=== PATIENT | male | born 1950 | race Caucasian/White ===

== ENCOUNTER 2019-05-11 09:52 | Outpatient (CLI) | payer OTHER | END 2019-05-11 10:03 | disposition home or self-care (01) | LOC: SONOGRAMA 09:52 | DX: K92.1 Melena (principal); R63.4 Abnormal weight loss; Z13.1 Encounter for screening for diabetes mellitus; Z12.11 Encounter for screening for malignant neoplasm of colon; Z12.5 Encounter for screening for malignant neoplasm of prostate; F10.188 Alcohol abuse with other alcohol-induced disorder; F17.298 Nicotine dependence, other tobacco product, with other nicotine-induced disorders ==

== ENCOUNTER 2020-07-09 10:25 | Outpatient (CLI) | payer OTHER | END 2020-07-09 10:37 | disposition home or self-care (01) | LOC: RAD 10:25 | PROVIDERS: ATTEND Specialist | DX: R05 Cough (principal) ==

== ENCOUNTER → 2022-12-09 | Outpatient (CLI) | payer OTHER | END | disposition home or self-care (01) | LOC: TOM 08:45 | PROVIDERS: ATTEND Specialist | DX: J44.9 Chronic obstructive pulmonary disease, unspecified (principal); F10.19 Alcohol abuse with unspecified alcohol-induced disorder; R63.4 Abnormal weight loss ==

== ENCOUNTER 2023-08-18 10:21 | Emergency (ER) | payer OTHER ==
[~2023-08-18] VITALS: Ht 162.6 cm; Wt 63.5 kg
[2023-08-18 13:56] LABS: HEMATOCRIT 33.1 % (39.0-48.0); HEMOGLOBIN 11.6 g/dL (13-16.00); MEAN CELL VOLUME 103.8 fL (80.0-100.00); MEAN CORPUSCULAR HEMOGLOBIN 36.4 pg (27.00-32.0); MEAN CORPUSCULAR HGB CONC 35.1 g/dl (32.0-36.0); RED BLOOD COUNT 3.19 M/uL (4.00-6.00); RED CELL DISTRIBUTION WIDTH 15.7 % (11.5-14.5)
[2023-08-18 13:57] LABS: PLATELET COUNT 96 K/uL (150-450)
[2023-08-18 14:21] LABS: URINE APPEARANCE Cloudy; URINE BILIRRUBIN Negative (NEGATIVE); URINE BLOOD Negative; URINE COLOR Dark Yellow; URINE GLUCOSE Negative (NEGATIVE); URINE LEUKOCYTE Negative; URINE NITRATE Negative; URINE PROTEIN Negative (NEGATIVE)
[2023-08-18 14:25] LABS: URINE BACTERIA 54.1 uL (0.0-1933); URINE EPITHELIAL CELLS 2.7 uL (0.0-38.8); URINE RBC 3.1 uL (0.0-20.8); URINE WBC 1.8 uL (0.0-23.2)
[2023-08-18 14:26] LABS: ALBUMIN 2.4 gm/dL (3.4-5.0); BILIRUBIN TOTAL 1.52 mg/dL (0.3-1.2); CALCIUM 8.6 mg/dL (8.5-10.1); CREATININE SERUM 0.74 mg/dL (0.70-1.30); GFR 104.26; GLOBULINA 5.2 G/DL (2.4-3.5); POTASSIUM 4.47 mEq/L (3.5-5.1); TOTAL PROTEIN 7.6 gm/dL (6.4-8.2)
[2023-08-18 14:39] LABS: URINE CRYSTALS FEW /HPF
[2023-08-18] MEDS ORDERED: CIPRO500 MG PO (22:36)
[2023-08-18] MEDS ORDERED: LEVSIN/SL0.125 MG SL (22:36)
[2023-08-18] MEDS ORDERED: PEPCID AC20 MG PO (22:36)
== END 2023-08-18 22:50 | disposition home or self-care (01) ==
LOC: ER 10:21
PROVIDERS: Emergency Medicine
DX: K52.9 Noninfective gastroenteritis and colitis, unspecified (principal)

== ENCOUNTER 2023-08-31 06:21 | Inpatient (IN) | payer OTHER ==
[~2023-08-31] VITALS: Ht 185.4 cm; Wt 58.5 kg
[~2023-08-31 06:21] MED LIST: CIPRO500 MG PO; LEVSIN/SL0.125 MG SL; PEPCID AC20 MG PO
[2023-08-31 09:38] LABS: HEMATOCRIT 32.3 % (39.0-48.0); HEMOGLOBIN 11.4 g/dL (13-16.00); MEAN CELL VOLUME 103.7 fL (80.0-100.00); MEAN CORPUSCULAR HEMOGLOBIN 36.5 pg (27.00-32.0); MEAN CORPUSCULAR HGB CONC 35.1 g/dl (32.0-36.0); RED BLOOD COUNT 3.12 M/uL (4.00-6.00); RED CELL DISTRIBUTION WIDTH 15.1 % (11.5-14.5)
[2023-08-31 09:43] LABS: PLATELET COUNT 86 K/uL (150-450)
[2023-08-31 10:02] LABS: ALBUMIN 2.3 gm/dL (3.4-5.0); BILIRUBIN TOTAL 2.23 mg/dL (0.3-1.2); BILIRUBIN,CONJUGATED 1.16 mg/dL (0.0-0.2); BILIRUBIN,UNCONJUGATED 1.07 mg/dL (0.0-0.6); CALCIUM 8.3 mg/dL (8.5-10.1); CREATININE SERUM 0.78 mg/dL (0.70-1.30); GFR 98.12; GLOBULINA 4.7 G/DL (2.4-3.5); POTASSIUM 3.62 mEq/L (3.5-5.1)
[2023-08-31 11:46] LABS: URINE APPEARANCE Clear; URINE BILIRRUBIN Small (NEGATIVE); URINE BLOOD Negative; URINE COLOR Dark Yellow; URINE GLUCOSE Negative (NEGATIVE); URINE LEUKOCYTE Trace; URINE NITRATE Negative; URINE PROTEIN Negative (NEGATIVE)
[2023-08-31 11:49] LABS: URINE RBC 4.7 uL (0.0-20.8); URINE WBC 2.9 uL (0.0-23.2)
[2023-09-04 07:20] LABS: HEMATOCRIT 30.1 % (39.0-48.0); HEMOGLOBIN 10.4 g/dL (13-16.00); MEAN CELL VOLUME 106.2 fL (80.0-100.00); MEAN CORPUSCULAR HEMOGLOBIN 36.7 pg (27.00-32.0); MEAN CORPUSCULAR HGB CONC 34.6 g/dl (32.0-36.0); RED BLOOD COUNT 2.84 M/uL (4.00-6.00); RED CELL DISTRIBUTION WIDTH 14.3 % (11.5-14.5)
[2023-09-04 07:34] LABS: CALCIUM 7.5 mg/dL (8.5-10.1); CREATININE SERUM 0.72 mg/dL (0.70-1.30); GFR 107.61
[2023-09-04 07:41] LABS: PLATELET COUNT 73 K/uL (150-450)
[2023-09-04 08:46] LABS: POTASSIUM 2.67 mEq/L (3.5-5.1)
[2023-09-05 08:21] LABS: CALCIUM 7.6 mg/dL (8.5-10.1); CREATININE SERUM 0.65 mg/dL (0.70-1.30); GFR 121.09; POTASSIUM 3.27 mEq/L (3.5-5.1)
[2023-09-06 11:05] LABS: CALCIUM 7.6 mg/dL (8.5-10.1); CREATININE SERUM 0.82 mg/dL (0.70-1.30); GFR 92.62; POTASSIUM 3.09 mEq/L (3.5-5.1)
[2023-09-07 07:01] LABS: CALCIUM 7.9 mg/dL (8.5-10.1); CREATININE SERUM 0.67 mg/dL (0.70-1.30); GFR 116.93; POTASSIUM 3.52 mEq/L (3.5-5.1)
== END 2023-09-07 19:10 | disposition home or self-care (01) | DRG 433 ==
LOC: ER 06:21 → SEC-K 09-01 14:35 → MEDI 09-01 14:35
PROVIDERS: Emergency Medicine; ADMIT Internal Medicine; ATTEND Internal Medicine
PROC: BW21ZZZ Computerized Tomography (CT Scan) of Abdomen and Pelvis (ICD-10-PCS; principal; 2023-09-01)
DX: K70.9 Alcoholic liver disease, unspecified (principal); R18.8 Other ascites; K52.9 Noninfective gastroenteritis and colitis, unspecified

== ENCOUNTER 2024-04-13 08:44 | Outpatient (CLI) | payer OTHER | END 2024-04-13 08:52 | disposition home or self-care (01) | LOC: SONOGRAMA 08:44 | PROVIDERS: ATTEND Surgery | DX: C20 Malignant neoplasm of rectum (principal) ==

== ENCOUNTER 2024-04-14 08:22 | Outpatient (CLI) | payer OTHER | END 2024-04-14 08:49 | disposition home or self-care (01) | LOC: TOM 08:22 | PROVIDERS: ATTEND Surgery | DX: K40.30 Unilateral inguinal hernia, with obstruction, without gangrene, not specified as recurrent (principal) ==

== ENCOUNTER 2024-12-13 13:31 | Inpatient (IN) | payer OTHER ==
[~2024-12-13] VITALS: Ht 162.6 cm; Wt 58.1 kg
--- NOTE | 2024-12-13 13:48 | NUR ---
PTE RFEIFE SANGRADO POR LA BOCA DESDE SUSAN. PTE PADESE DE HIGADOY EN TOMADOR. SE LE NOHEMY S/V Y SE UBICA EN FABBY AREA DE OBSERVACION.
[2024-12-13] MEDS ORDERED: RINGERS SOLUTION,LACTATED 1,000 ML IV STA (14:22)
[2024-12-13] MEDS ORDERED: PANTOPRAZOLE SODIUM 4 MG/ML REDILUIDO IV STA (14:23)
[2024-12-13] MEDS ORDERED: PANTOPRAZOLE SODIUM 40 MG in 0.9 % SODIUM CHLORIDE 8 ML IV PUSH STA (14:31)
[2024-12-13 15:01] LABS: PH,URINE 5.5 (5.0-8.0); URINE APPEARANCE Clear; URINE BILIRRUBIN Small (NEGATIVE); URINE BLOOD Negative; URINE COLOR Dark Yellow; URINE GLUCOSE Negative (NEGATIVE); URINE KETONE Trace (NEGATIVE); URINE LEUKOCYTE Negative; URINE NITRATE Negative; URINE PROTEIN Negative (NEGATIVE)
[2024-12-13 15:24] LABS: URINE BACTERIA 3.6 uL (0.0-1933); URINE CAST 0.14 uL (0.0-1.40); URINE RBC 1.4 uL (0.0-20.8); URINE WBC 1.1 uL (0.0-23.2)
[2024-12-13] MEDS ORDERED: LIDOCAINE HCL VISCOUS 20MG/ML BLIST 15ML MM ONE (16:03)
--- NOTE | 2024-12-13 16:13 | NUR ---
SE ORIENTA A PTE SOBRE TX MEDICO EL CUAL REFIERE ENTENDER Y ACEPTAR. SEC ANALIZA Y SE [facility]. SE ADMINISTRAN MEDS NED ORDEN MEDICA. SE INSERTA NGT TO LIS PATENTE Y FIJADO.
[2024-12-13 16:17] LABS: HEMATOCRIT 28.5 % (39.0-48.0); HEMOGLOBIN 10.1 g/dL (13-16.00); MEAN CELL VOLUME 107.3 fL (80.0-100.00); MEAN CORPUSCULAR HEMOGLOBIN 37.8 pg (27.00-32.0); MEAN CORPUSCULAR HGB CONC 35.2 g/dl (32.0-36.0); RED BLOOD COUNT 2.66 M/uL (4.00-6.00); RED CELL DISTRIBUTION WIDTH 15.5 % (11.5-14.5)
[2024-12-13 16:19] LABS: PLATELET COUNT 86 K/uL (150-450)
--- NOTE | 2024-12-13 16:21 | NUR ---
SE ORIENTA A PTE SOBRE TX MEDICO EL CUAL REFIERE ENTENDER Y ACEPTAR. SEC ANALIZA Y SE [facility]. SE ADMINISTRAN MEDS NED ORDEN MEDICA.
[2024-12-13 16:33] LABS: BILIRUBIN TOTAL 1.66 mg/dL (0.3-1.2); BILIRUBIN,CONJUGATED 1.14 mg/dL (0.0-0.2); BILIRUBIN,UNCONJUGATED 0.52 mg/dL (0.0-0.6); CALCIUM 7.7 mg/dL (8.5-10.1); CREATININE SERUM 0.87 mg/dL (0.70-1.30); GFR 86.26; POTASSIUM 4.22 mEq/L (3.5-5.1); TOTAL PROTEIN 6.8 gm/dL (6.4-8.2)
[2024-12-13 16:38] LABS: COVID-19 AG NEGATIVE (NEGATIVE)
[2024-12-13 16:39] LABS: INFLUENZA A AG NEGATIVE (NEGATIVE)
[2024-12-13 16:40] LABS: INR 1.35; PARTIAL THROMBOPLASTIN TIME 29.9 SECONDS (22.0-34.0); PROTHROMBIN TIME 14.4 SECONDS (9.0-11.5)
[2024-12-13] MEDS ORDERED: ALBUMIN HUMAN-25 0.25GM/ML (50ML) VIAL IV SCH (20:38)
[2024-12-13] MEDS ORDERED: PANTOPRAZOLE SODIUM 40 MG/VIAL VIAL IV SCH (20:39)
[2024-12-13] MEDS ORDERED: CEFTRIAXONE SODIUM 2,000 MG in 0.9 % SODIUM CHLORIDE 100 ML IV SCH (20:41)
[2024-12-13] MEDS ORDERED: OCTREOTIDE ACETATE 0.05MG/ML (50MCG/ML) AMPUL IV ONE (20:45)
[2024-12-13] MEDS ORDERED: FUROsemide 20 MG/2 ML VIAL IV SCH (21:00)
[2024-12-14 04:16] VITALS: BP 144/67; O2SAT 97
[2024-12-14 08:30] VITALS: BP 130/60; O2SAT 96
[2024-12-14] MEDS ORDERED: LACTULOSE 20 G/30 ML BLIST.PACK PO SCH (09:00)
[2024-12-14] MEDS ORDERED: SPIRONOLACTONE 25 MG TABLET PO SCH (09:00)
[2024-12-14] MEDS ORDERED: LACTULOSE 10 G/15 ML ML PO SCH (09:00)
[2024-12-14 18:05] VITALS: BP 153/64
[2024-12-15 01:16] VITALS: BP 144/60; O2SAT 96
[2024-12-15 08:32] VITALS: BP 128/60; O2SAT 94
== END 2024-12-15 13:38 | disposition home or self-care (01) | DRG 434 ==
LOC: ER 13:52 → MEDI 23:38 → MEDJ 12-15 12:18
PROVIDERS: General Practice; ADMIT Specialist/Technologist, Other Nephrology; ATTEND Specialist/Technologist, Other Nephrology
PROC: BW21ZZZ Computerized Tomography (CT Scan) of Abdomen and Pelvis (ICD-10-PCS; principal; 2024-12-13)
DX: K70.31 Alcoholic cirrhosis of liver with ascites (principal); F10.20 Alcohol dependence, uncomplicated; D64.9 Anemia, unspecified; D69.6 Thrombocytopenia, unspecified

== ENCOUNTER 2025-02-07 07:18 | Emergency (ER) | payer OTHER ==
[~2025-02-07] VITALS: Ht 165.1 cm; Wt 61.2 kg
[2025-02-07] MEDS ORDERED: FAMOtidine 10 MG/ML (4ML VIAL) IV PUSH STA (09:15)
[2025-02-07 10:12] LABS: URINE APPEARANCE Clear; URINE BILIRRUBIN Small (NEGATIVE); URINE BLOOD Negative; URINE COLOR Dark Yellow; URINE GLUCOSE Negative (NEGATIVE); URINE KETONE Negative (NEGATIVE); URINE LEUKOCYTE Negative; URINE NITRATE Negative; URINE PROTEIN Negative (NEGATIVE); URINE UROBILINOGEN 2.0 E.U./dl
[2025-02-07 10:13] LABS: BASO % 0.7 % (0.1-1.2); EOS # 0.16 (0.04-0.54); EOS % 2.6 % (0.7-7.0); LYMPH # 1.42 (1.18-3.74); LYMPH % 23.3 % (19.3-53.1); MEAN PLATELET VOLUME 11.20 fl (9.4-12.4); MONO # 0.72 (0.24-0.82); MONO % 11.8 % (4.7-12.5); NEUT # 3.73 (1.56-6.13); NEUT % 61.3 % (34.0-71.1); RED CELL DISTRIBUTION WIDTH 16.4 % (11.6-14.4)
[2025-02-07 10:17] LABS: URINE BACTERIA 5.9 uL (0.0-1933)
[2025-02-07 10:30] LABS: URINE CAST 0.00 uL (0.0-1.40); URINE EPITHELIAL CELLS 0.9 uL (0.0-38.8); URINE RBC 0.8 uL (0.0-20.8); URINE WBC 1.6 uL (0.0-23.2)
[2025-02-07 10:45] LABS: COVID-19 AG NEGATIVE (NEGATIVE)
[2025-02-07 10:47] LABS: INR 1.42
[2025-02-07 10:51] LABS: ALT/SGPT 23.0 U/L (12-78); AST/SGOT 38.0 U/L (15-37); BILIRUBIN TOTAL 2.36 mg/dL (0.3-1.2); BILIRUBIN,CONJUGATED 1.28 mg/dL (0.0-0.2); BUN CREA RATIO 12.0 (7.0-25.0); CREATININE SERUM 0.77 mg/dL (0.70-1.30); GFR 99.31; GLOBULINA 4.4 G/DL (2.4-3.5); GLUCOSE FASTING 86.0 mg/dL (65-100); OSMOLALITY SERUM 283.0 MOSM/KG (275-295)
== END 2025-02-07 14:32 | disposition home or self-care (01) ==
LOC: ER 07:18
DX: K76.9 Liver disease, unspecified (principal); Z20.822 Contact with and (suspected) exposure to COVID-19; K40.20 Bilateral inguinal hernia, without obstruction or gangrene, not specified as recurrent; I70.8 Atherosclerosis of other arteries

== ENCOUNTER 2025-03-08 07:28 | Outpatient (CLI) | payer OTHER | END 2025-03-08 07:32 | disposition home or self-care (01) | LOC: TOM 07:28 | PROVIDERS: ATTEND Internal Medicine Gastroenterology | DX: K74.60 Unspecified cirrhosis of liver (principal) ==

== ENCOUNTER 2025-03-21 00:13 | Inpatient (IN) | payer OTHER ==
[~2025-03-21] VITALS: Ht 165.1 cm; Wt 60.3 kg
[2025-03-21] MEDS ORDERED: KRISTALOSE10 GM (00:19)
--- NOTE | 2025-03-21 00:30 | NUR ---
SE RECIBE ADAMS DE 74 ANOS DE EDAD ACOMPANADO DE [place]. PTE REFIERE QUE TIENE DOLOR ABDOMINAL DEANA QUE SE LE DIFICULTA ESTAR SENTADO. PTE SE OBSERVA CON ABDOMEN DISTENDIDO Y EDEMA EN AMBAS PIERNAS. SE MIDEN S/V LOS MISMOS EN PARAMETROS NORMALES. PTE SE UBICA EN CAMA 8 CON BARANDAS ELEVADAS EN AREA DE3 OBSERVACION PARA EVALUACION MEDICA.
[2025-03-21] MEDS ORDERED: MORPHINE SULFATE 4 MG/ML VIAL IV STA (01:10)
[2025-03-21] MEDS ORDERED: 0.9 % SODIUM CHLORIDE 1,000 ML IV ONE (01:15)
[2025-03-21 01:58] LABS: BASO % 0.8 % (0.1-1.2); EOS # 0.16 (0.04-0.54); EOS % 2.6 % (0.7-7.0); LYMPH # 1.03 (1.18-3.74); LYMPH % 16.6 % (19.3-53.1); MEAN PLATELET VOLUME 11.00 fl (9.4-12.4); MONO # 0.71 (0.24-0.82); MONO % 11.4 % (4.7-12.5); NEUT # 4.24 (1.56-6.13); NEUT % 68.3 % (34.0-71.1); RED CELL DISTRIBUTION WIDTH 17.7 % (11.6-14.4)
[2025-03-21 02:16] LABS: INR 1.37
[2025-03-21 02:21] LABS: ALT/SGPT 21.0 U/L (12-78); AST/SGOT 42.0 U/L (15-37); BILIRUBIN TOTAL 1.82 mg/dL (0.3-1.2); BILIRUBIN,CONJUGATED 0.95 mg/dL (0.0-0.2); BUN CREA RATIO 12.0 (7.0-25.0); CREATININE SERUM 0.77 mg/dL (0.70-1.30); GFR 99.31; GLOBULINA 4.3 G/DL (2.4-3.5); GLUCOSE FASTING 175.0 mg/dL (65-100); OSMOLALITY SERUM 286.0 MOSM/KG (275-295)
--- NOTE | 2025-03-21 06:40 | NUR ---
SE ORIENTA PTE SOBRE TX, SE REALIZAN TX MEDICO EN BROWNLEE TOTALIDAD.
[2025-03-21] MEDS ORDERED: SPIRONOLACTONE 25 MG TABLET PO STA (06:56)
[2025-03-21 09:02] LABS: URINE APPEARANCE Clear; URINE BILIRRUBIN Negative (NEGATIVE); URINE BLOOD Negative; URINE COLOR Yellow; URINE GLUCOSE Negative (NEGATIVE); URINE KETONE Negative (NEGATIVE); URINE LEUKOCYTE Negative; URINE NITRATE Negative; URINE PROTEIN Negative (NEGATIVE); URINE UROBILINOGEN 0.2 E.U./dl
[2025-03-21 09:07] LABS: URINE BACTERIA 31.2 uL (0.0-1933); URINE EPITHELIAL CELLS 1.5 uL (0.0-38.8); URINE WBC 3.8 uL (0.0-23.2)
[2025-03-21 09:20] LABS: URINE CAST 0.00 uL (0.0-1.40); URINE RBC 1.9 uL (0.0-20.8)
[2025-03-21] MEDS ORDERED: PANTOPRAZOLE SODIUM 40 MG/VIAL VIAL IV SCH (13:10)
[2025-03-21 13:32] VITALS: BP 108/59
[2025-03-21 13:50] VITALS: BP 108/59; O2SAT 96
[2025-03-21 16:11] VITALS: BP 120/60; O2SAT 97
[2025-03-21 18:30] VITALS: BP 156/72; O2SAT 98
[2025-03-21] MEDS ORDERED: LACTULOSE 10 G/15 ML ML PO SCH (18:56)
[2025-03-22 02:10] VITALS: BP 116/56
[2025-03-22] MEDS ORDERED: LACTULOSE 20 G/30 ML BLIST.PACK PO SCH (09:00)
[2025-03-22 09:37] VITALS: BP 108/57; O2SAT 95
[2025-03-22 19:03] VITALS: BP 132/63; O2SAT 96
[2025-03-22 22:13] LABS: BILI PERITONEAL FLUID 0.34 mg/dl; CREA PERITONEAL FLUID 0.63 mg/dl; GLU PERITONEAL FLUID 93.0 mg/dl; LDH PERITONEAL FLUID 49.0 U/L; TP PERITONEAL FLUID 0.7 g/dl
[2025-03-23 03:05] VITALS: BP 107/50; O2SAT 98
[2025-03-23 09:52] VITALS: BP 114/60; O2SAT 96
== END 2025-03-23 15:06 | disposition home or self-care (01) | DRG 433 ==
LOC: ER 00:13 → SEC-K 12:48 → MEDJ 12:48
PROVIDERS: General Practice; Radiology Vascular & Interventional Radiology; ADMIT Specialist/Technologist, Other Nephrology; ATTEND Specialist/Technologist, Other Nephrology
PROC: BW21ZZZ Computerized Tomography (CT Scan) of Abdomen and Pelvis (ICD-10-PCS; 2025-03-21)
PROC: 0W9G3ZX Drainage of Peritoneal Cavity, Percutaneous Approach, Diagnostic (ICD-10-PCS; principal; 2025-03-22)
DX: K70.31 Alcoholic cirrhosis of liver with ascites (principal); I85.00 Esophageal varices without bleeding; K40.90 Unilateral inguinal hernia, without obstruction or gangrene, not specified as recurrent; F10.10 Alcohol abuse, uncomplicated

== ENCOUNTER 2025-03-25 11:19 | Emergency (ER) | payer OTHER ==
[~2025-03-25] VITALS: Ht 165.1 cm; Wt 64.9 kg
[~2025-03-25 11:19] MED LIST changes: +KRISTALOSE10 GM
[2025-03-25 12:25] LABS: BASO % 0.5 % (0.1-1.2); EOS # 0.13 (0.04-0.54); EOS % 2.1 % (0.7-7.0); LYMPH # 1.20 (1.18-3.74); LYMPH % 19.6 % (19.3-53.1); MEAN PLATELET VOLUME 10.90 fl (9.4-12.4); MONO # 0.63 (0.24-0.82); MONO % 10.3 % (4.7-12.5); NEUT # 4.10 (1.56-6.13); NEUT % 67.2 % (34.0-71.1); RED CELL DISTRIBUTION WIDTH 17.5 % (11.6-14.4)
[2025-03-25 12:56] LABS: BUN CREA RATIO 14.0 (7.0-25.0); CREATININE SERUM 0.77 mg/dL (0.70-1.30); GFR 99.31; GLUCOSE FASTING 145.0 mg/dL (65-100); OSMOLALITY SERUM 287.0 MOSM/KG (275-295)
[2025-03-25 14:09] LABS: URINE APPEARANCE Clear; URINE BILIRRUBIN Small (NEGATIVE); URINE BLOOD Negative; URINE COLOR Dark Yellow; URINE GLUCOSE Negative (NEGATIVE); URINE KETONE Trace (NEGATIVE); URINE LEUKOCYTE Trace; URINE NITRATE Negative; URINE PROTEIN Trace (NEGATIVE); URINE UROBILINOGEN 1.0 E.U./dl
[2025-03-25 14:13] LABS: URINE BACTERIA 253.1 uL (0.0-1933); URINE EPITHELIAL CELLS 5.2 uL (0.0-38.8); URINE RBC 31.3 uL (0.0-20.8); URINE WBC 16.0 uL (0.0-23.2)
[2025-03-25 14:24] LABS: URINE CAST 0.00 uL (0.0-1.40)
[2025-03-25 14:48] LABS: URINE CRYSTALS FEW /HPF
== END 2025-03-26 00:33 | disposition home or self-care (01) ==
LOC: ER 11:29
PROVIDERS: Emergency Medicine
DX: K70.30 Alcoholic cirrhosis of liver without ascites (principal); D69.6 Thrombocytopenia, unspecified

== ENCOUNTER 2025-05-28 15:37 | Inpatient (IN) | payer OTHER ==
[~2025-05-28] VITALS: Ht 165.1 cm; Wt 60.3 kg
[2025-05-28] MEDS ORDERED: CAROSPIR25 MG/5 ML PO (17:12)
[2025-05-28] MEDS ORDERED: LASIX20 MG PO (17:13)
[2025-05-28] MEDS ORDERED: PROTONIX40 M1 PO (17:14)
[2025-05-28] MEDS ORDERED: LACTULOSE 20 G/30 ML BLIST.PACK PO SCH (18:36)
[2025-05-28] MEDS ORDERED: CEFTRIAXONE SODIUM 1,000 MG VIAL IV ONE (18:45)
[2025-05-28] MEDS ORDERED: FAMOtidine 10 MG/ML (4ML VIAL) IV ONE (18:45)
[2025-05-28] MEDS ORDERED: 0.9 % SODIUM CHLORIDE 1,000 ML IV ONE (18:45)
[2025-05-28] MEDS ORDERED: KETOROLAC TROMETHAMINE 30 MG VIAL IV ONE (18:45)
[2025-05-28] MEDS ORDERED: KETOROLAC TROMETHAMINE 30 MG VIAL ONE (19:26)
[2025-05-28] MEDS ORDERED: CEFTRIAXONE SODIUM 1,000 MG VIAL ONE (19:26)
[2025-05-28] MEDS ORDERED: LACTULOSE 20 G/30 ML BLIST.PACK ONE (19:26)
[2025-05-28] MEDS ORDERED: FAMOTIDINE/PF 20 MG/2 ML VIAL ONE (19:27)
[2025-05-28 21:03] LABS: BASO % 0.7 % (0.1-1.2); EOS # 0.20 (0.04-0.54); EOS % 3.0 % (0.7-7.0); LYMPH # 1.45 (1.18-3.74); LYMPH % 21.5 % (19.3-53.1); MEAN PLATELET VOLUME 10.40 fl (9.4-12.4); MONO # 0.78 (0.24-0.82); MONO % 11.6 % (4.7-12.5); NEUT # 4.23 (1.56-6.13); NEUT % 62.9 % (34.0-71.1); RED CELL DISTRIBUTION WIDTH 16.9 % (11.6-14.4)
[2025-05-28 21:16] LABS: ERYTHROCYTE SEDIMENTATION RATE 45 mm/hr (0-20)
[2025-05-28 21:18] LABS: INR 1.31
[2025-05-28 21:24] LABS: ALT/SGPT 32.0 U/L (12-78); AST/SGOT 39.0 U/L (15-37); BILIRUBIN TOTAL 2.57 mg/dL (0.3-1.2); BILIRUBIN,CONJUGATED 1.32 mg/dL (0.0-0.2); BUN CREA RATIO 20.0 (7.0-25.0); CREATININE SERUM 0.74 mg/dL (0.70-1.30); GFR 103.97; GLOBULINA 4.4 G/DL (2.4-3.5); GLUCOSE FASTING 72.0 mg/dL (65-100); OSMOLALITY SERUM 288.0 MOSM/KG (275-295)
[2025-05-28 21:29] LABS: URINE APPEARANCE Clear; URINE BILIRRUBIN Small (NEGATIVE); URINE BLOOD Negative; URINE COLOR Dark Yellow; URINE GLUCOSE Negative (NEGATIVE); URINE KETONE Negative (NEGATIVE); URINE LEUKOCYTE Trace; URINE NITRATE Negative; URINE PROTEIN Trace (NEGATIVE)
[2025-05-28 21:33] LABS: URINE BACTERIA 131.9 uL (0.0-1933); URINE EPITHELIAL CELLS 6.1 uL (0.0-38.8); URINE RBC 4.2 uL (0.0-20.8); URINE WBC 13.0 uL (0.0-23.2)
[2025-05-28 21:45] LABS: URINE CAST 0.00 uL (0.0-1.40); URINE UROBILINOGEN 4.0 E.U./dl
[2025-05-29] MEDS ORDERED: PIPERACILLIN/TAZOBACTAM SODIUM 3.375 GM VIAL IV SCH (00:37)
[2025-05-29] MEDS ORDERED: PIPERACILLIN/TAZOBACTAM SODIUM 3.375 GM VIAL IV ONE ×3 (01:20→08:55)
[2025-05-29] MEDS ORDERED: FAMOTIDINE/PF 20 MG/2 ML VIAL ONE (08:55)
[2025-05-29] MEDS ORDERED: FAMOtidine 10 MG/ML (4ML VIAL) IV SCH (09:00)
[2025-05-29] MEDS ORDERED: LACTULOSE 20 G/30 ML BLIST.PACK ONE ×2 (14:31→17:54)
[2025-05-29] MEDS ORDERED: ONDANSETRON HCL 4 MG in 0.9 % SODIUM CHLORIDE 50 ML IV PRN (17:30)
[2025-05-29] MEDS ORDERED: 0.9 % SODIUM CHLORIDE 1,000 ML IV SCH (17:30)
[2025-05-29 18:09] VITALS: BP 120/58
[2025-05-29 22:04] VITALS: BP 147/73
[2025-05-30 01:06] VITALS: BP 150/69; O2SAT 99
[2025-05-30 08:00] VITALS: BP 122/53; O2SAT 97
[2025-05-30] MEDS ORDERED: SPIRONOLACTONE 50 MG TABLET PO SCH (09:00)
[2025-05-30] MEDS ORDERED: LACTULOSE 20 G/30 ML BLIST.PACK PO SCH (09:00)
[2025-05-30] MEDS ORDERED: 0.9 % SODIUM CHLORIDE 1,000 ML IV SCH (09:00)
[2025-05-30] MEDS ORDERED: PANTOPRAZOLE SODIUM 40 MG/VIAL VIAL IV SCH (09:00)
[2025-05-30] MEDS ORDERED: CYANOCOBALAMIN (VITAMIN B-12) 1,000 MCG/ML VIAL IM SCH (17:00)
[2025-05-30] MEDS ORDERED: SOD FERRIC GLUC COMPLX/SUCROSE 62.5 MG in 0.9 % SODIUM CHLORIDE 50 ML IV SCH (17:00)
[2025-05-30 18:34] VITALS: BP 126/75
[2025-05-31 02:26] VITALS: BP 118/64; O2SAT 95
[2025-05-31 09:03] VITALS: BP 123/60; O2SAT 97
[2025-05-31 16:24] LABS: INR 1.42
[2025-05-31 16:39] LABS: ALT/SGPT 30.0 U/L (12-78); AST/SGOT 47.0 U/L (15-37); BILIRUBIN TOTAL 1.78 mg/dL (0.3-1.2); BILIRUBIN,CONJUGATED 0.92 mg/dL (0.0-0.2); BUN CREA RATIO 16.0 (7.0-25.0); CREATININE SERUM 0.85 mg/dL (0.70-1.30); GFR 88.6; GLOBULINA 4.3 G/DL (2.4-3.5); GLUCOSE FASTING 119.0 mg/dL (65-100); OSMOLALITY SERUM 287.0 MOSM/KG (275-295)
[2025-05-31 19:24] VITALS: BP 121/59; O2SAT 98
[2025-06-01 00:53] VITALS: BP 106/56; O2SAT 97
[2025-06-01 06:44] LABS: ALT/SGPT 27.0 U/L (12-78); AST/SGOT 40.0 U/L (15-37); BILIRUBIN TOTAL 1.67 mg/dL (0.3-1.2); BILIRUBIN,CONJUGATED 0.8 mg/dL (0.0-0.2); BUN CREA RATIO 24.0 (7.0-25.0); CREATININE SERUM 0.63 mg/dL (0.70-1.30); GFR 125.19; GLOBULINA 3.9 G/DL (2.4-3.5); GLUCOSE FASTING 83.0 mg/dL (65-100); OSMOLALITY SERUM 279.0 MOSM/KG (275-295)
[2025-06-01 09:12] VITALS: BP 118/72; O2SAT 97
[2025-06-01 18:21] VITALS: BP 109/70; O2SAT 100
[2025-06-02 01:42] VITALS: BP 122/69; O2SAT 96
[2025-06-02 07:01] LABS: BASO % 0.7 % (0.1-1.2); EOS # 0.33 (0.04-0.54); EOS % 4.3 % (0.7-7.0); LYMPH # 1.20 (1.18-3.74); LYMPH % 15.8 % (19.3-53.1); MEAN PLATELET VOLUME 10.90 fl (9.4-12.4); MONO # 1.04 (0.24-0.82); NEUT # 4.94 (1.56-6.13); NEUT % 65.1 % (34.0-71.1); RED CELL DISTRIBUTION WIDTH 16.4 % (11.6-14.4)
[2025-06-02 07:46] LABS: MONO % 13.7 % (4.7-12.5)
[2025-06-02] MEDS ORDERED: PANTOPRAZOLE SODIUM 40 MG TABLET.DR PO SCH (09:00)
[2025-06-02 09:05] VITALS: BP 118/62; O2SAT 100
[2025-06-02 20:28] VITALS: BP 116/78
[2025-06-03 02:34] VITALS: BP 119/55; O2SAT 96
[2025-06-03 08:40] VITALS: BP 114/60; O2SAT 95
[2025-06-03 16:00] VITALS: BP 143/71; O2SAT 97
[2025-06-04 03:22] VITALS: BP 123/60; O2SAT 96
[2025-06-04 08:18] VITALS: BP 114/57; O2SAT 99
[2025-06-04 16:59] VITALS: BP 141/63; O2SAT 99
[2025-06-05 03:07] VITALS: BP 119/63; O2SAT 95
[2025-06-05 06:13] LABS: BASO % 0.6 % (0.1-1.2); EOS # 0.39 (0.04-0.54); EOS % 5.0 % (0.7-7.0); LYMPH # 1.59 (1.18-3.74); LYMPH % 20.4 % (19.3-53.1); MEAN PLATELET VOLUME 10.80 fl (9.4-12.4); MONO # 0.71 (0.24-0.82); MONO % 9.1 % (4.7-12.5); NEUT # 5.03 (1.56-6.13); NEUT % 64.4 % (34.0-71.1); RED CELL DISTRIBUTION WIDTH 16.9 % (11.6-14.4)
[2025-06-05 06:39] LABS: ALT/SGPT 34.0 U/L (12-78); AST/SGOT 47.0 U/L (15-37); BILIRUBIN TOTAL 1.43 mg/dL (0.3-1.2); BUN CREA RATIO 19.0 (7.0-25.0); CREATININE SERUM 0.79 mg/dL (0.70-1.30); GFR 96.41; GLOBULINA 4.3 G/DL (2.4-3.5); GLUCOSE FASTING 75.0 mg/dL (65-100); OSMOLALITY SERUM 281.0 MOSM/KG (275-295)
[2025-06-05 09:37] VITALS: BP 105/54; O2SAT 99
[2025-06-05] MEDS ORDERED: LACTULOSE 20 G/30 ML BLIST.PACK PO SCH (17:00)
[2025-06-05 17:38] VITALS: BP 115/56; O2SAT 97
[2025-06-06 01:17] VITALS: BP 118/62; O2SAT 97
[2025-06-06 08:37] VITALS: BP 118/58; O2SAT 97
[2025-06-06 18:15] VITALS: BP 122/60; O2SAT 97
[2025-06-06 21:41] LABS: BASO % 0.7 % (0.1-1.2); EOS # 0.31 (0.04-0.54); EOS % 4.3 % (0.7-7.0); LYMPH # 1.17 (1.18-3.74); LYMPH % 16.4 % (19.3-53.1); MEAN PLATELET VOLUME 10.70 fl (9.4-12.4); MONO # 0.88 (0.24-0.82); MONO % 12.3 % (4.7-12.5); NEUT # 4.70 (1.56-6.13); NEUT % 65.9 % (34.0-71.1); RED CELL DISTRIBUTION WIDTH 18.5 % (11.6-14.4)
[2025-06-07 01:59] VITALS: BP 113/55; O2SAT 95
[2025-06-07 08:42] VITALS: BP 123/68; O2SAT 97
[2025-06-07 17:32] VITALS: BP 116/65
[2025-06-08 03:10] VITALS: BP 121/67; O2SAT 95
[2025-06-08 08:59] VITALS: BP 130/65; O2SAT 96
[2025-06-08] MEDS ORDERED: SPIRONOLACTONE 50 MG TABLET PO SCH (09:00)
[2025-06-08 18:02] VITALS: BP 116/58
[2025-06-08] MEDS ORDERED: LACTULOSE 20 G/30 ML BLIST.PACK PO SCH (20:05)
[2025-06-09 03:42] VITALS: BP 111/69; O2SAT 95
[2025-06-09 08:44] VITALS: BP 126/61; O2SAT 97
[2025-06-09 16:49] VITALS: BP 122/67; O2SAT 97
== END 2025-06-09 16:49 | disposition home or self-care (01) | DRG 434 ==
LOC: ER 15:37 → MEDI 05-29 17:24 → SEC-K 05-29 17:24 → MEDI 05-29 17:44
PROVIDERS: General Practice; Internal Medicine Infectious Disease; Internal Medicine Nephrology; ADMIT Internal Medicine; ATTEND Internal Medicine
PROC: B020ZZZ Computerized Tomography (CT Scan) of Brain (ICD-10-PCS; 2025-05-28)
PROC: BW21ZZZ Computerized Tomography (CT Scan) of Abdomen and Pelvis (ICD-10-PCS; 2025-05-28)
PROC: 0W9G3ZZ Drainage of Peritoneal Cavity, Percutaneous Approach (ICD-10-PCS; principal; 2025-05-30)
PROC: 30233N1 Transfusion of Nonautologous Red Blood Cells into Peripheral Vein, Percutaneous Approach (ICD-10-PCS; 2025-06-06)
DX: K70.31 Alcoholic cirrhosis of liver with ascites (principal); K76.82 Hepatic encephalopathy; K52.9 Noninfective gastroenteritis and colitis, unspecified; D53.9 Nutritional anemia, unspecified; D69.6 Thrombocytopenia, unspecified; D63.8 Anemia in other chronic diseases classified elsewhere; F10.20 Alcohol dependence, uncomplicated; F17.200 Nicotine dependence, unspecified, uncomplicated; Y90.9 Presence of alcohol in blood, level not specified

== ENCOUNTER → 2025-06-20 | Emergency (ER) | payer OTHER ==
[~2025-06-20] VITALS: Ht 165.1 cm; Wt 59.0 kg
[~2025-06-20] MED LIST changes: +0.9 % SODIUM CHLORIDE 1,000 ML IV SCH; +ALBUMIN HUMAN-25 0.25GM/ML (50ML) VIAL IV SCH; +CAROSPIR25 MG/5 ML PO; +CEFTRIAXONE SODIUM 1,000 MG VIAL ONE; +CEFTRIAXONE SODIUM 1,000 MG in DEXTROSE 5 % IN WATER 100 ML IV ONE; +CEFTRIAXONE SODIUM 2,000 MG in 0.9 % SODIUM CHLORIDE 100 ML IV SCH; +LACTULOSE 20 G/30 ML BLIST.PACK ONE; +LACTULOSE 20 G/30 ML BLIST.PACK PO ONE; +LACTULOSE 20 G/30 ML BLIST.PACK PO SCH; +LASIX20 MG PO; +OCTREOTIDE ACETATE 0.05MG/ML (50MCG/ML) AMPUL IV ONE; +OCTREOTIDE ACETATE 1,250 MCG in 0.9 % SODIUM CHLORIDE 250 ML IV SCH; +ONDANSETRON HCL 2 MG/ML VIAL ONE; +ONDANSETRON HCL 4 MG in 0.9 % SODIUM CHLORIDE 50 ML IV ONE; +ONDANSETRON HCL 4 MG in 0.9 % SODIUM CHLORIDE 50 ML IV PRN; +PANTOPRAZOLE SODIUM 40 MG/VIAL VIAL IV PUSH ONE; +PANTOPRAZOLE SODIUM 40 MG/VIAL VIAL IV SCH; +PROTONIX40 M1 PO; +SPIRONOLACTONE 25 MG TABLET PO SCH
[2025-06-20 13:16] LABS: BASO % 0.6 % (0.1-1.2); EOS # 0.25 (0.04-0.54); EOS % 3.9 % (0.7-7.0); LYMPH # 0.83 (1.18-3.74); LYMPH % 13.0 % (19.3-53.1); MEAN PLATELET VOLUME 10.30 fl (9.4-12.4); MONO # 0.64 (0.24-0.82); MONO % 10.0 % (4.7-12.5); NEUT # 4.59 (1.56-6.13); NEUT % 72.0 % (34.0-71.1); RED CELL DISTRIBUTION WIDTH 17.1 % (11.6-14.4)
[2025-06-20 13:35] LABS: INR 1.42
[2025-06-20 13:55] LABS: ALT/SGPT 36.0 U/L (12-78); AST/SGOT 46.0 U/L (15-37); BILIRUBIN TOTAL 2.25 mg/dL (0.3-1.2); BILIRUBIN,CONJUGATED 1.3 mg/dL (0.0-0.2); BUN CREA RATIO 23.0 (7.0-25.0); CREATININE SERUM 0.62 mg/dL (0.70-1.30); GFR 127.52; GLOBULINA 4.6 G/DL (2.4-3.5); GLUCOSE FASTING 116.0 mg/dL (65-100); OSMOLALITY SERUM 279.0 MOSM/KG (275-295)
[2025-06-20 15:37] LABS: URINE APPEARANCE Clear; URINE BILIRRUBIN Negative (NEGATIVE); URINE BLOOD Negative; URINE COLOR Yellow; URINE GLUCOSE Negative (NEGATIVE); URINE KETONE Negative (NEGATIVE); URINE LEUKOCYTE Negative; URINE NITRATE Negative; URINE PROTEIN Negative (NEGATIVE); URINE UROBILINOGEN 1.0 E.U./dl
[2025-06-20 15:40] LABS: URINE BACTERIA 7.1 uL (0.0-1933)
[2025-06-20 16:16] LABS: URINE CAST 0.14 uL (0.0-1.40); URINE EPITHELIAL CELLS 1.3 uL (0.0-38.8); URINE RBC 1.6 uL (0.0-20.8); URINE WBC 0.6 uL (0.0-23.2)
[2025-06-21 00:35] VITALS: BP 126/51; O2SAT 98
== END | disposition designated cancer center or children's hospital (05) ==
LOC: ER 09:50
PROVIDERS: General Practice
DX: K70.31 Alcoholic cirrhosis of liver with ascites (principal); K21.9 Gastro-esophageal reflux disease without esophagitis; I85.10 Secondary esophageal varices without bleeding